=== PATIENT | female | born 1965 | race Caucasian/White ===

== ENCOUNTER 2019-04-22 06:55 | Outpatient (CLI) | payer BC ==
--- NOTE | 2019-04-22 07:38 | ULT ---
Right upper quadrant ultrasound: 04/22/2019 COMPARISON: None HISTORY: Hepatic steatosis TECHNIQUE: Multiplanar grayscale sonographic imaging of the right upper quadrant provided. FINDINGS: Imaged pancreas unremarkable. Portions of the pancreas are obscured by bowel gas. Hepatic parenchyma is heterogeneous and echogenic, consistent with the provided history of hepatic st eatosis. Right kidney measures 8.1 cm in craniocaudal dimension and demonstrates no evidence for stone, hydron ephrosis, or mass lesion. No gallbladder wall thickening or pericholecystic fluid. No gallstones are noted. A common bile duct measures 3 mm, within normal limits. The cyber intel planner reports a negative Nunez's s ign. IMPRESSION: Sonographic findings consistent with the provided history of hepatic steatosis. No eviden ce for cholelithiasis, cholecystitis, or biliary dilatation.
== END 2019-04-22 06:56 | disposition home or self-care (01) ==
LOC: SCSULT 06:55
PROVIDERS: ATTEND Family Medicine
DX: K76.0 Fatty (change of) liver, not elsewhere classified (principal)
CPT/HCPCS: 76705

== ENCOUNTER 2019-05-27 08:21 | Outpatient (CLI) | payer BC | END 2019-05-27 08:22 | disposition home or self-care (01) | LOC: DTY/OP 08:21 | PROVIDERS: ATTEND Family Medicine | DX: K76.0 Fatty (change of) liver, not elsewhere classified (principal) | CPT/HCPCS: 97802 ==

== ENCOUNTER 2019-10-14 07:05 | Outpatient (CLI) | payer BC ==
--- NOTE | 2019-10-14 08:36 | ULT ---
BILATERAL CAROTID DUPLEX ULTRASOUND INCLUDING COLOR AND SPECTRAL DOPPLER IMAGING: DATE: 10/14/19 HISTORY: Stenosis, follow-up CT angiogram neck. FINDINGS: Visible plaque noted in both proximal ICAs, worse on the left side. PSV Right ICA: 68 cm/sec EDV: 29 cm/sec ICA/CCA Ratio: 0.7 PSV Left ICA: 81 cm/sec EDV: 38 cm/sec ICA/CCA Ratio: 0.8 Vertebral flow is antegrade. IMPRESSION: No hemodynamically significant stenosis. Atherosclerotic plaque involving both proximal ICAs, worse o n the left side, evidence for bilateral carotid artery arteriovascular atherosclerotic disease. POS: [facility]
== END 2019-10-14 07:06 | disposition home or self-care (01) ==
LOC: SCSULT 07:05
PROVIDERS: ATTEND Family Medicine
DX: I65.02 Occlusion and stenosis of left vertebral artery (principal); I65.23 Occlusion and stenosis of bilateral carotid arteries
CPT/HCPCS: 93880

== ENCOUNTER 2020-02-12 12:31 | Emergency (ER) | payer BC, OTHER | END 2020-02-12 13:54 | disposition home or self-care (01) | LOC: ERS 12:31 | DX: R05 Cough (principal); I10 Essential (primary) hypertension; F41.9 Anxiety disorder, unspecified; F32.9 Major depressive disorder, single episode, unspecified; Z79.899 Other long term (current) drug therapy | CPT/HCPCS: 99283; U0001 ==

== ENCOUNTER 2020-10-12 08:37 | Outpatient (CLI) | payer BC ==
--- NOTE | 2020-10-12 09:59 | RAD ---
LEFT KNEE 3 VIEWS: Date: 10/12/2020 HISTORY: Left knee pain. FINDINGS/IMPRESSION: No fracture, dislocation, or bony destruction is seen. No joint effusion is identified. There is mild joint space narrowing in the medial tibiofemoral compartment. No significant osteophytosis is seen. POS: AH
[2020-10-12 12:06] LABS: ALT (SGPT) 46 U/L (8-55); AST (SGOT) 44 U/L (5-34); Albumin 4.6 g/dL (3.5-5.0); Alkaline Phosphatase 105 U/L (40-110); Anion Gap 17 mmol/L (10-20); BUN (Urea Nitrogen) 17 mg/dL (9.8-20.1); Bilirubin, Total 1.2 mg/dL (0.2-1.2); Calc. Creatinine Clearance 0 mL/min (70-130); Calcium 9.6 mg/dL (7.8-10.44); Carbon Dioxide 26 mmol/L (22-29); Cardiac Risk 3.7 (Less than 4.5); Chloride 98 mmol/L (98-107); Cholesterol 129 mg/dl (< 200 Desired); Estimated GFR-MDRD 52; Glucose 103 mg/dL (70-105); HDL Cholesterol 35 mg/dL (>60 Neg Risk); LDL Cholesterol, Calculated 60 mg/dL; Protein, Total 7.6 g/dL (6.0-8.3); Sodium 137 mmol/L (136-145); Triglycerides 171 mg/dL (Less than 150)
== END 2020-10-12 08:38 | disposition home or self-care (01) ==
LOC: SCSRAD 08:37
PROVIDERS: ATTEND Family Medicine
DX: M25.562 Pain in left knee (principal); E78.5 Hyperlipidemia, unspecified; M17.12 Unilateral primary osteoarthritis, left knee
CPT/HCPCS: 36415; 80053; 80061

== ENCOUNTER 2020-10-28 10:42 | Outpatient (CLI) | payer BC ==
--- NOTE | 2020-10-28 11:43 | MMO ---
Bilateral MAMMO Bilat Screen [facility]. CLINICAL HISTORY: Patient is 55 years old and is seen for screening. The patient has the following family history of breast cancer: mother, at age 70. The patient has no personal history of cancer. VIEWS: The views performed were: bilateral craniocaudal with tomosynthesis and bilateral mediolateral oblique with tomosynthesis. FILMS COMPARED: The present examination has been compared to prior imaging studies performed at [facility] on 07/26/2017 and 07/31/2018. This study has been interpreted with the assistance of computer-aided detection. MAMMOGRAM FINDINGS: There are scattered fibroglandular densities. Finding 1: There is a stable asymmetry seen in the inner region of the left breast. Finding 2: There are stable benign appearing calcifications seen in both breasts. There are no suspicious masses, suspicious calcifications, or new areas of architectural distortion. IMPRESSION: THERE IS NO MAMMOGRAPHIC EVIDENCE OF MALIGNANCY. A ROUTINE FOLLOW-UP MAMMOGRAM IN 1 YEAR IS RECOMMENDED. THE RESULTS OF THIS EXAM WERE SENT TO THE PATIENT. ACR BI-RADS Category 2 - Benign finding MAMMOGRAPHY NOTE: 1. A negative mammogram report should not delay a biopsy if a dominant of clinically suspicious mass is present. 2. Approximately 10% to 15% of breast cancers are not detected by mammography. 3. Adenosis and dense breasts may obscure an underlying neoplasm. Reported by: SUNI RAMESH MD Electonically Signed: [id number]
--- NOTE | 2020-10-28 12:27 | ULT ---
CAROTID DOPPLER: Date: 10/28/2020 Ultrasound Doppler studies performed of the extracranial carotid arteries with color Doppler, spectra l analysis, and velocity recordings. INDICATION: Carotid stenosis. Correlation made to carotid Doppler study of 10/14/2019. That exam showed no evidence of hemodynamica lly significant stenosis. There was atherosclerotic plaque noted on that study. FINDINGS: Ultrasound images show mild echogenic plaque in the bulb regions. This is slightly more pronounced in the left proximal ICA. No increased velocities were recorded. Highest left ICA velocity was recorded at 90 cm/second systoli c. Highest right ICA velocity recorded at 74 cm/second systolic. Vertebrals are antegrade. IMPRESSION: 1. Mild echogenic plaque on the right, and mild to moderate echogenic plaque on the left. 2. No evidence of hemodynamically significant stenosis by velocity recording. POS: LISAW
== END 2020-10-28 10:43 | disposition home or self-care (01) ==
LOC: BICULT 10:42
PROVIDERS: ATTEND Family Medicine
DX: Z12.31 Encounter for screening mammogram for malignant neoplasm of breast (principal); I65.23 Occlusion and stenosis of bilateral carotid arteries; Z80.3 Family history of malignant neoplasm of breast
CPT/HCPCS: 77063; 77067; 93880

== ENCOUNTER 2021-10-15 07:58 | Outpatient (CLI) | payer BC ==
[2021-10-15 11:05] LABS: ALT (SGPT) 34 U/L (8-55); AST (SGOT) 28 U/L (5-34); Albumin 4.1 g/dL (3.5-5.0); Alkaline Phosphatase 95 U/L (40-110); Anion Gap 13 mmol/L (10-20); BUN (Urea Nitrogen) 12 mg/dL (9.8-20.1); Calc. Creatinine Clearance 0 mL/min (70-130); Calcium 9.3 mg/dL (7.8-10.44); Carbon Dioxide 29 mmol/L (22-29); Cardiac Risk 3.1 (Less than 4.5); Chloride 101 mmol/L (98-107); Cholesterol 116 mg/dl (< 200 Desired); Globulin 2.7 g/dL (2.4-3.5); Glucose 119 mg/dL (70-105); HDL Cholesterol 37 mg/dL (>60 Neg Risk); LDL Cholesterol, Calculated 53 mg/dL; Potassium 3.3 mmol/L (3.5-5.1); Protein, Total 6.8 g/dL (6.0-8.3); Sodium 140 mmol/L (136-145); Triglycerides 129 mg/dL (Less than 150)
== END 2021-10-15 07:59 | disposition home or self-care (01) ==
LOC: SCSRAD 07:58
PROVIDERS: ATTEND Family Medicine
DX: M25.552 Pain in left hip (principal); E78.5 Hyperlipidemia, unspecified; M16.12 Unilateral primary osteoarthritis, left hip
CPT/HCPCS: 36415; 80053; 80061

== ENCOUNTER 2021-11-15 07:49 | Outpatient (CLI) | payer BC | END 2021-11-15 07:50 | disposition home or self-care (01) | LOC: BICMAMMO 07:49 | PROVIDERS: ATTEND Family Medicine | DX: Z12.31 Encounter for screening mammogram for malignant neoplasm of breast (principal); Z80.3 Family history of malignant neoplasm of breast | CPT/HCPCS: 77063; 77067 ==

== ENCOUNTER 2022-12-09 07:49 | Outpatient (CLI) | payer BC | END 2022-12-09 07:50 | disposition home or self-care (01) | LOC: BICMAMMO 07:49 | PROVIDERS: ATTEND Family Medicine | DX: Z12.31 Encounter for screening mammogram for malignant neoplasm of breast (principal); Z80.3 Family history of malignant neoplasm of breast | CPT/HCPCS: 77063; 77067 ==